=== PATIENT | female | born 1935 | race Caucasian/White ===

== ENCOUNTER 2016-09-23 10:23 | Emergency (ER) | payer MEDICARE ==
[2016-09-23 10:32] VITALS: BP 151/59; PULSE 109; RESP 20; TEMP 97.9; O2SAT 98
[2016-09-23] MEDS ORDERED: LISI10TA3 PO (10:38)
[2016-09-23] MEDS ORDERED: AMLO5TAB2 PO (10:38)
[2016-09-23] MEDS ORDERED: METO50TA PO (10:38)
[2016-09-23] MEDS ORDERED: ESTR.3 PO (10:38)
[2016-09-23] MEDS ORDERED: ASPI325T PO (10:38)
[2016-09-23] MEDS ORDERED: FISHCAP4 PO (10:38)
[2016-09-23] MEDS ORDERED: CO Q10CA (10:38)
[2016-09-23] MEDS ORDERED: DEXAMETHASONE SOD PHOS 4 MG/ML VIAL IM ONE (11:00)
[2016-09-23] MEDS ORDERED: FAMOTIDINE 20 MG TAB PO ONE (11:00)
[2016-09-23] MEDS ORDERED: diphenhydrAMINE HCL 50 MG/ML VIAL IM ONE (11:00)
[2016-09-23] MEDS ORDERED: RANITIDINE HCL 150 MG TAB PO ONE (11:00)
[2016-09-23 11:35] VITALS: BP 129/59; PULSE 83; RESP 20; O2SAT 97
[2016-09-23 12:24] VITALS: BP 118/59; PULSE 86; RESP 20; O2SAT 96
[2016-09-23] MEDS ORDERED: ZANT300T PO (12:34)
[2016-09-23] MEDS ORDERED: PRED20 PO (12:34)
[2016-09-23] MEDS ORDERED: ZYRT10CA PO (12:34)
--- NOTE | 2016-09-23 12:35 | PD ---
HPI Chief Complaint: Edema Time Seen by Provider: 10:48 Travel History International Travel<30 days: No Contact w/Intl Traveler<30days: No Traveled to known affect area: No History of Present Illness HPI 81-year-old female complains of swelling on the face and lips. Patient states that the symptoms started last night. Patient denies any recent injury. Patient denies any dental pain. Patient denies any fever or chills. Patient has history of hypertension and on lisinopril, amlodipine and metoprolol. Patient states that she has history of intermittent swelling of the face and tongue in the past. Patient denies any problems swallowing or shortness of breath. 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) Hypertension: Yes Past Surgical History Cardiac Surgery: Yes (PACEMAKER) Hysterectomy: Yes Social History Alcohol Use: No Tobacco Use: No Substance Use: No Allergies-Medications (Allergen,Severity, Reaction): Coded Allergies: No Known Allergies (Unverified , 09/23/16) Reported Meds & Prescriptions Reported Meds & Active Scripts Active Reported Co Q 10 (Coenzyme Q10 (Ubidecarenone)) 10 Mg Cap Unknown Dose Aspirin 325 Mg Tab 325 Mg PO DAILY Premarin (Estrogens Conjugated) 0.3 Mg Tab Unknown Dose PO DAILY Fish Oil + D3 (Fish Oil-Cholecalciferol) 1,200-1,000 Mg-Unit Cap Unknown Dose PO DAILY Amlodipine (Amlodipine Besylate) 5 Mg Tab 5 Mg PO DAILY Metoprolol Tartrate 50 Mg Tab 50 Mg PO BID Lisinopril 10 Mg Tab 10 Mg PO DAILY Review of Systems General / Constitutional: No: Fever Eyes: No: Visual changes HENT: No: Headaches Cardiovascular: No: Chest Pain or Discomfort Respiratory: No: Shortness of Breath Gastrointestinal: No: Abdominal Pain Genitourinary: No: Dysuria Musculoskeletal: No: Pain Skin: No Rash Neurologic: No: Weakness Psychiatric: No: Depression Endocrine: No: Polydipsia Hematologic/Lymphatic: No: Easy Bruising Physical Exam Narrative GENERAL: Well-nourished, well-developed patient. SKIN: Warm and dry. HEAD: Normocephalic. EYES: No scleral icterus. No injection or drainage. Patient has mild swelling on the face and lips. No tongue swelling. No pharyngeal edema. No stridor or wheezes. NECK: Supple, trachea midline. No JVD or lymphadenopathy. CARDIOVASCULAR: Regular rate and rhythm without murmurs, gallops, or rubs. RESPIRATORY: Breath sounds equal bilaterally. No accessory muscle use. GASTROINTESTINAL: Abdomen soft, non-tender, nondistended. MUSCULOSKELETAL: No cyanosis, or edema. BACK: Nontender without obvious deformity. No CVA tenderness. Neurologic exam normal. Data Data Last Documented VS Vital Signs Date Time Temp Pulse Resp B/P Pulse Ox O2 Delivery O2 Flow Rate FiO2 09/23/16 12:24 86 20 118/59 96 09/23/16 10:32 97.9 Orders Dexamethasone Inj (Decadron Inj) (09/23/16 11:00) Diphenhydramine Inj (Benadryl Inj) (09/23/16 11:00) Ranitidine (Zantac) (09/23/16 11:00) Famotidine (Pepcid) (09/23/16 11:00) MDM Medical Decision Making Medical Screen Exam Complete: Yes Emergency Medical Condition: Yes Differential Diagnosis Differential diagnosis including angioedema, allergic reaction. Narrative Course 81-year-old female with swelling of the face and lips. Patient has history hypertension on lisinopril. Patient has history of intermittent swelling in the past. Decadron 8 mg IM. Benadryl 50 mg IM. Pepcid 20 mg by mouth. Diagnosis Primary Impression: Angioedema Qualified Code: T78.3XXA - Angioedema, initial encounter Patient Instructions: General Instructions Additional Instructions: Advised patient to stop lisinopril. Advised patient to follow up with her personal physician for direction a medication for high blood pressure. Take prednisone and Zyrtec as directed. Return if worse. Return immediately if any problem with swallowing or shortness of breath. Med/Other Pt SpecificInfo: Prescription(s) given, Med Stopped Scripts Ranitidine (Zantac)300 Mg [id number] Mg PO DAILY #10 TAB Ref 0 Prov:Davion Fishman MD 09/23/16 Cetirizine (Zyrtec Allergy)10 Mg Cap10 Mg PO DAILY #10 CAP Ref 0 Prov:Davion Fishman MD 09/23/16 Prednisone 20 Mg Tab20 Mg PO BID #10 TAB Prov:Davion Fishman MD 09/23/16 Disposition: 01 DISCHARGE HOME Condition: Stable Davion Fishman MD Sep 23, 2016 12:35
== END 2016-09-23 12:59 | disposition home or self-care (01) ==
LOC: PHED 10:23
DX: T78.3XXA Angioneurotic edema, initial encounter (principal); I10 Essential (primary) hypertension; Z86.73 Personal history of transient ischemic attack (TIA), and cerebral infarction without residual deficits
CPT/HCPCS: 96372; 99283; J1100; J1200